=== PATIENT | male | born 1995 | race Asian ===

== ENCOUNTER 2017-05-15 03:18 | Emergency (ER) | payer OTHER ==
[~2017-05-15] VITALS: Ht 175.3 cm; Wt 68.0 kg
[2017-05-15 03:18] VITALS: BP_SYST 133
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
--- NOTE | 2017-05-15 03:20 | NUR ---
Patient to ER bed 4 to gown for evaluation. Side rails up.
--- NOTE | 2017-05-15 03:30 | NUR ---
ER MD Agrawal at bedside for medical evaluation.
--- NOTE | 2017-05-15 03:42 | NUR ---
Written and verbal consent obtained from patient for blood alcohol, name and verified by patient. Disinfected patient's skin with iodine that did not contain alcohol or other volatile organic compound. Collected the blood from the subject named by venipuncture, in the presence of Officer with badge # [id number]. Used a sterile, dry hypodermic needle and dry vacuum blood collection. The dry vacuum blood collection was supplied by the officer named above. Withdrew a specimen of blood from [facility] of the subject named above. Inverted the blood tube several times to ensure that the preservative and anticoagulant were thoroughly mixed in the blood specimen. I initialed the blood tube label for identification. The labeled blood tube was handed directly to the Officer named above. The blood tube stopper remained in place while I had possession of the blood tube. The Officer placed tube into envelope and sealed it in my presence. Envelope initialed by myself and Officer named above. Patient tolerated well, bandage applied, and bleeding controlled.
--- NOTE | 2017-05-15 03:50 | NUR ---
Patient given written and verbal discharge instructions and verbalizes understanding. ER MD discussed with patient the results and treatment provided. Patient in stable condition. ID arm band removed. No Rx given. Patient educated on pain management and to follow up with PMD. Pain Scale 0/10. Opportunity for questions provided and answered.
[2017-05-15 03:51] VITALS: BP_SYST 133
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
== END 2017-05-15 03:51 ==
LOC: SED 03:18
DX: S00.83XA Contusion of other part of head, initial encounter (principal); F10.10 Alcohol abuse, uncomplicated; F17.200 Nicotine dependence, unspecified, uncomplicated; V43.52XA Car driver injured in collision with other type car in traffic accident, initial encounter; Y93.89 Activity, other specified; Y92.89 Other specified places as the place of occurrence of the external cause; Y99.8 Other external cause status
CPT/HCPCS: 99283